=== PATIENT | male | born 1970 | race Caucasian/White ===

== ENCOUNTER 2017-06-07 13:13 | Emergency (ER) | payer OTHER ==
[2017-06-07 13:17] VITALS: TEMP 98.1
--- NOTE | 2017-06-07 13:30 | CPEKG ---
Heart Rate: 102 RR Interval: 588 P-R Interval: 152 QRSD Interval: 88 QT Interval: 352 QTC Interval: 459 P [place]: 33 QRS [place]: 71 T Wave [place]: -1 EKG Severity - OTHERWISE NORMAL ECG - EKG Impression: SINUS TACHYCARDIA Electronically Signed By: Oswaldo Gonzalez 10-Jun-2017 10:54:35
--- NOTE | 2017-06-07 13:44 | EDPHY ---
H & P Stated Complaint: substernal cp since 0400/vodka last night Source: Patient Exam Limitations: No limitations - Personal History Current Tetanus/Diphtheria Vaccine: Unsure - Medical/Surgical History Hx Asthma: No Hx Chronic Respiratory Disease: No Hx Diabetes: No Hx Cardiac Disease: No Hx Renal Disease: No Hx Cirrhosis: No Hx Alcoholism: No Hx HIV/AIDS: No Hx Splenectomy or Spleen Trauma: No Other PMH: gout - Social History Smoking Status: Never smoked Time Seen by Provider: 06/07/17 13:43 HPI/ROS: HPI: This is a 46-year-old male presents with Chief Complaint:substernal cp since 0400/vodka last night Location: Epigastric Quality: Dull, burning pain Duration: Started at 0 400 Signs and Symptoms: No shortness of breath, no nausea, no vomiting, no cardiac awareness, no lower extremity swelling, no chest pain, no fever, no back pain, no blood in stool, no hematemesis Timing: Sudden, improving Severity: Moderate Context: Patient reports that he is generally healthy and he woke up this morning with dull burning epigastric pain, nonradiating in nature head is slowly improving. He denies shortness of breath/chest pain/palpitations/cough/ fever. No recent long distance travel. He does drink approximately 3 alcoholic beverages every night after work and substantially more on the weekends. He did drink excessively last night; cannot tell me how much. He has noted some indigestion symptoms sporadically over the last several years. And he also has noticed some burning in his epigastric area after heavy drinking in the past. Denies any food intolerance to spicy fatty fried foods. no prior cardiac history. Grandfather had a pacemaker. Modifying Factors: He has tried nothing for the symptoms. Comment: ROS: see HPI Constitutional: No fever, no chills, no weight loss Eyes: No blurred vision Respiratory: No shortness of breath, no cough Cardiovascular: No chest pain Gastrointestinal: No nausea, no vomiting, no diarrhea Genitourinary: No dysuria Extremities: No myalgias Neurologic: No weakness, no numbness Skin: No rashes Hematologic: No bruising, no bleeding MEDICAL/SURGICAL/SOCIAL HISTORY: Medical history: Gout. Does not take any regular medications. Surgical history: Denies Social history: Currently in a relationship. Employed. CONSTITUTIONAL: Overweight adult white male, awake and alert, no obvious distress HEENT: Atraumatic and normocephalic, PERRL, EOMI. Tympanic membranes clear. Oropharynx clear, no exudate and moist pink mucosa. Airway patent. No lymphadenopathy. No meningismus. Cardiovascular: Normal S1/S2, regular rate, regular rhythm, without murmur rub or gallop. PULMONARY/CHEST: Symmetrical and nontender. Clear to auscultation bilaterally. Good air movement. No accessory muscle usage. ABDOMEN: Soft, nondistended, mild epigastric tenderness, no rebound, no guarding, no peritoneal signs, no masses or organomegaly. No CVAT. EXTREMITIES: 2/2 pulses, no deformities, no clubbing, no cyanosis or edema. negative Homans sign. No palpable cords. NEUROLOGICAL: no focal neuro deficits. GCS 15. SKIN: Warm and dry, no erythema. no rash. Good capillary refill. (Kenia Parekh) Constitutional: Initial Vital Signs Temperature (C) 36.7 C 06/07/17 13:14 Heart Rate 115 H 06/07/17 13:14 Respiratory Rate 20 06/07/17 13:14 Blood Pressure 165/123 H 06/07/17 13:14 O2 Sat (%) 96 06/07/17 13:14 O2 Delivery Mode Room Air Allergies/Adverse Reactions: erythromycin base Allergy (Verified 06/07/17 13:14) Home Medications: [facility]ication [facility]ructions [facility]17 Pantoprazole Sodium [Protonix 40mg 40 mg PO BID #20 tab 06/07/17 (*)] Sucralfate [Carafate 1 GM (*)] 1 gm PO ACHS 7 Days tab 06/07/17 Medical Decision Making - Diagnostics EKG Interpretation: 12 lead EKG: Indication: Abdominal pain Rhythm: Sinus tachycardia, rate of 102 beats per minute [place]: Normal Intervals: Normal QRS: Normal ST segments: Normal INTERPRETATION: Normal EKG The 12 lead EKG was interpreted by myself. (Kenia Parekh) ED Course/Re-evaluation: EKG, CXR, labs, IVF, oral medication ordered Atypical chest pain; FELICIA risk factor low; suspect alcoholic gastritis. GI cocktail given along with 1 L normal saline. EKG does not show any acute ischemic changes Chest x-ray my read shows no pneumothorax/effusion/opacity 1430: Labs reviewed and grossly unremarkable specifically no signs of PE/ACS/ CHF/pancreatitis/obstructive pathology/acute kidney injury/CVA Repeat vital signs at discharge show resolution of tachycardia and final blood pressure 159/111 (Kenia Parekh) Differential Diagnosis: Abdominal pain including but not limited to appendicitis, cholecystitis, gastritis and urinary tract infection. (Kenia Parekh) Other Provider: The patient was evaluated and managed by the Physician Customer Account Representative. My co- signature indicates that I have reviewed this chart and I agree with the findings and plan of care as documented. I am the secondary supervising physician. (Emily Payton) - Data Points Laboratory Results: Laboratory Results 06/07/17 13:25 06/07/17 13:25 Medications Given: Discontinued Medications Al Hydroxide/Mg Hydroxide (Maalox Susp) 30 ml PO ONCE ONE Stop: 06/07/17 13:44 Last Admin: 06/07/17 14:22 Dose: 30 ml Hyoscyamine Sulfate (Levsin, Hyomax-Sl) 0.25 mg PO ONCE ONE Stop: 06/07/17 13:44 Last Admin: 06/07/17 14:22 Dose: 0.25 mg Sodium Chloride (Ns) 1,000 mls @ 0 mls/hr IV EDNOW ONE; Wide Open PRN Reason: Protocol Stop: 06/07/17 13:44 Last Admin: 06/07/17 14:22 Dose: 1,000 mls Lidocaine (Lidocaine 2% Viscous) 15 ml PO ONCE ONE Stop: 06/07/17 13:44 Last Admin: 06/07/17 14:23 Dose: 15 ml Departure - Departure Disposition: Home, Routine, Self-Care Clinical Impression: Atypical chest pain, Alcoholic gastritis without mention of hemorrhage, Hypertension Condition: Good Instructions: Chest Pain (ED), Gastritis (ED) Additional Instructions: Your chest pain today does not seem to be due to a cardiac or pulmonary etiology. Please avoid drinking excessive alcohol. Take Protonix daily and Carafate as directed for the next 1 week. Please follow-up with your primary care provider for repeat blood pressure monitoring and to determine if blood pressure medications need to be started. Please follow up with Gastroenterology. They may recommend an EGD. Please follow up with Cardiology for cardiac risk evaluation and to determine if outpatient cardiac stress testing is indicated. Referrals: Fortino Rader MD [[facility] Primary Care Provider] - As per Instructions Quintin Ackerman MD [Medical Doctor] - As per Instructions OSCAR LUGO [Medical Doctor] - As per Instructions Prescriptions: Pantoprazole Sodium [Protonix 40mg (*)] 40 mg PO BID #20 tab Sucralfate [Carafate 1 GM (*)] 1 gm PO ACHS 7 Days tab
[2017-06-07 13:47] VITALS: RESP 16
[2017-06-07 13:47] LABS: % IMMATURE GRANULYOCYTES 0.4 % (0.0-1.1); ABSOLUTE IMMATURE GRANULOCYTES 0.04 10^3/uL (0.00-0.10); ADD DIFF? NO; ADD MORPH? NO; ADD SCAN? NO; ATYPICAL LYMPHOCYTE FLAG 0 (0-99); FRAGMENT RBC FLAG 0 (0-99); HEMATOCRIT 50.3 % (40.0-51.0); HEMOGLOBIN 18.2 g/dL (13.7-17.5); LEFT SHIFT FLG 0 (0-99); LIPEMIA HEMOLYSIS FLAG 90 (0-99); MEAN CELL HEMOGLOBIN 32.5 pg (27.9-34.1); MEAN CELL HEMOGLOBIN CONCENTR. 36.2 g/dL (32.4-36.7); MEAN CELL VOLUME 89.8 fL (81.5-99.8); MEAN PLATELET VOLUME 10.3 fL (8.7-11.7); PLATELET CLUMPS FLAG 0 (0-99); PLATELET COUNT 184 10^3/uL (150-400); RED CELL DISTRIBUTION WIDTH 11.8 % (11.5-15.2)
[2017-06-07 13:53] LABS: ANION GAP 17 mEq/L (8-16); CALCIUM 11.1 mg/dL (8.5-10.4); CARBON DIOXIDE 25 mEq/l (22-31); CHLORIDE 99 mEq/L (97-110); CREATININE 0.9 mg/dL (0.7-1.3); GLOMERULAR FILTRATION RATE > 60; GLUCOSE 115 mg/dL (70-100); POTASSIUM 3.8 mEq/L (3.5-5.2); SODIUM 141 mEq/L (134-144)
[2017-06-07 14:02] LABS: ALANINE AMINOTRANSFERASE 61 IU/L (21-72); ALBUMIN 4.9 g/dL (3.5-5.0); ALKALINE PHOSPHATASE 90 IU/L (38-126); ASPARTATE AMINOTRANSFERASE 38 IU/L (17-59); BILIRUBIN-CONJUGATED 0.4 mg/dL (0.0-0.5); BILIRUBIN-UNCONJUGATED 0.6 mg/dL (0.0-1.1); TOTAL PROTEIN 8.2 g/dL (6.3-8.2)
[2017-06-07 14:05] LABS: TROPONIN I < 0.012 ng/mL (0.000-0.034)
[2017-06-07] MEDS: MAG HYDROX/AL HYDROX/SIMETH 30 ML UDCUP PO ONE (14:22)
[2017-06-07] MEDS: NS 1,000 ML IV ONE (14:22)
[2017-06-07] MEDS: HYOSCYAMINE SULFATE 0.125 MG TAB PO ONE (14:22)
[2017-06-07] MEDS: LIDOCAINE 2% VISCOUS 15 ML UDCUP PO ONE (14:23)
[2017-06-07 14:28] VITALS: O2SAT 95
[2017-06-07 14:50] VITALS: BP 159/111; PULSE 91
== END 2017-06-07 15:50 | disposition home or self-care (01) ==
DX: K29.20 Alcoholic gastritis without bleeding (principal); R07.89 Other chest pain; I10 Essential (primary) hypertension; E86.9 Volume depletion, unspecified